=== PATIENT | male | born 1975 | race Asian ===

== ENCOUNTER 2025-01-11 08:34 | Outpatient (NON) | payer OTHER, SELFPAY ==
--- NOTE | 2025-01-11 | S_PTH ---
PATIENT: Chacho Lagunas LOC: [facility] U#:[id number] AGE/SX: 49/M ROOM: RE01/11/[address]: Nelson Wadsworth MD : 1975 BED: DIS: 01/11/2025 SPEC #: [id number] RECD: 01/12/25 09:25 STATUS: ZENA REQ #: [id number] GAB: 01/11/25 00:[address]: Nelson Wadsworth DEPT: [facility] Surgical RECD BY: Daniel Canela ENTERED: 01/12/25 09:25 SP TYPE: Surgical OTHR DR: Trey Raymundo, Tissues: A - Rectal Polyp Procedures: Hematoxylin and Eosin Stain Gross and Microscopic Level 4
== END 2025-01-11 08:35 | disposition home or self-care (01) ==
LOC: ANHLAB 01-12 08:36
PROVIDERS: PCP Internal Medicine; Visit Provider Internal Medicine Gastroenterology
DX: Z12.11 Encounter for screening for malignant neoplasm of colon (principal)
CPT/HCPCS: 88305

== ENCOUNTER 2025-01-11 10:18 | Day surgery (SDC) | payer OTHER, SELFPAY ==
[2024-11-26 13:46] VITALS: BMI 38.0
--- NOTE | 2024-12-23 14:23 | PC.NURSE ---
PRE-OPERATIVE INSTRUCTIONS [address] [address] 1. Report to the Surgery Center Waiting Room, the entrance is the first door on the right after passing through the automatic sliding doors, at time __1115__on [id number]___. OR Time:_1245__ . - Time changes happen often and if your time is changed the preop area will call you the afternoon before. - You and your visitor will be asked to self-screen and do not enter if you have any COVID symptoms. - Two visitors over, age 16 and older, are allowed.? NO children visitors are allowed at this time. - A mask is optional within the hospital at this time. 2. FOLLOW PREP INSTRUCTION 3. Take the following medications with a SIP of water the morning of surgery: 1. N/A____ 2. 3. Medications to discontinue per physician order: 1. N/A date to discontinue: 4. No make-up, nail [place], hairspray, perfume, deodorant, or body powder the day of surgery. No jewelry (including any body piercings) or valuables the day of surgery. Please take a shower or bath the night before, or the morning of, surgery with an antibacterial soap. Wear comfortable, loose fitting clothing. Children are encouraged to wear pajamas. - Jewelry must be removed prior to entering the operating room. Rings and piercings that are not removed will be cut off. The center will not accept responsibility for valuables. Please leave all valuables, including medications, at home the day of surgery. 5. When going home after surgery, a licensed package delivery driver must drive you home. NO public transportation without another adult. We recommend someone to stay with you, no alcoholic beverages, driving or important decision making for 24 hours after surgery. For pediatric surgeries, we recommend two adults to accompany a child home. 6. Follow any additional instructions given by your physician. Telephone instructions given to: PATIENT and asked if any additional questions and then verbalized understanding. Patient advised to call surgeon office or the surgery center at [phone] if any additional questions.
[2025-01-11 11:01] VITALS: BMI 37.5
[2025-01-11 11:14] VITALS: BP 116/84; PULSE 67; RESP 18; TEMP 36.9; O2SAT 98
[2025-01-11] MEDS: LACTATED RINGERS 1,000 ML 150 ML IV CONT (11:16)
--- NOTE | 2025-01-11 11:31 | P.PNAN_ITS ---
Anes - Initial Pre Proc Eval Procedure: Operation Date: 01/11/25 12:45 Proposed Procedures p Screening Colonoscopy - Nelson Wadsworth MD Date/Time: 01/11/25 11:31 Surgeon: Nelson Wadsworth MD Pre Op Diagnosis: Neoplasm Screening Patient Data Age: 49 Gender: M Height: 1.65 m Weight: 102.4 kg Last Vital Signs Temp 98.5 F 01/11/25 11:14 Pulse 67 01/11/25 11:14 Resp 18 01/11/25 11:14 BP 116/84 01/11/25 11:14 Pulse Ox 98 01/11/25 11:14 O2 Del Method Room Air 01/11/25 11:14 Allergies Allergy/AdvReac Type Severity Reaction Status Date / Time aspirin Allergy Intermediate Hives Verified 01/11/25 10:58 Home Medications ?Medication ?Instructions ?Recorded ?Confirmed ?Type albuterol sulfate 90 mcg/actuation 2 inh inhalation Q4 -6H #18 grams 11/25/24 12/23/24 Rx aerosol inhaler (ProAir HFA) simvastatin 40 mg tablet 40 mg PO DAILY #90 tabs 12/0401/11/25 Rx Patient hx anesthesia problems: none Family hx anesthesia problems: none Results Review: All pre-operative results and documents have been reviewed as part of the pre- operative evaluation. [facility], LAT[facility] Family History Family History Father No problems noted. Mother No problems noted. Sibling No problems noted. Sibling No problems noted. Social History Social History (Updated 11/25/24 @ 12:58 by Nilda Arnold) Smoking status: Never smoker Alcohol intake: current Drinks per week: 1 Alcohol use details: occasional Substance use: never Substance use type: does not use Do You Feel Safe in your Home?: Yes Lack of Transportation: No Lack of Food: Never True Current Housing: I Have Housing Concerned About Future Housing: No Difficulty Paying Gas/Electric Bills: No Difficulty Paying for Meds: No Currently Unemployed: No Education: Decline to Answer Difficulty w/ Childcare or Family Care: No Living arrangements: with family Occupation/Education: occupation Gender identity (if verbalized by the patient): Male Sexual Orientation (if Verbalized by the Patient): Straight or Heterosexual Spiritual care concerns: No Anes - Eval Final PreProcedure Day of Procedure 01/11/25 11:31 Heart: regular rate and rhythm Lungs: clear to auscultation Airway: Mallampati scale class III Neurological: alert and oriented Last oral intake: >/= 8 hours ASA classification: II Anesthetic plan: proceed Anesthesia type and monitoring: monitored anesthesia care Results Review: All pre-operative results and documents have been reviewed as part of the pre- operative evaluation. Informed Consent: The patient's anesthetic plan and its attendant risks and benefits were discussed with the patient/family/POA. Questions were solicited and answers provided to the satisfaction of the patient/family/POA.
--- NOTE | 2025-01-11 11:48 | PM.IMHP ---
H&P: HPI History of Present Illness Date/Time: 01/11/25 11:48 Chief Complaint: Screening colonoscopy Narrative: This is the patient's first colonoscopy. There are no GI symptoms and there is no family history of colorectal cancer. Review of Systems Review of Systems: All systems reviewed & are unremarkable except as noted in HPI and below PMFSH Family History Family History Father No problems noted. Mother No problems noted. Sibling No problems noted. Sibling No problems noted. Social History Social History (Updated 11/25/24 @ 12:58 by Nilda Arnold) Smoking status: Never smoker Alcohol intake: current Drinks per week: 1 Alcohol use details: occasional Substance use: never Substance use type: does not use Do You Feel Safe in your Home?: Yes Lack of Transportation: No Lack of Food: Never True Current Housing: I Have Housing Concerned About Future Housing: No Difficulty Paying Gas/Electric Bills: No Difficulty Paying for Meds: No Currently Unemployed: No Education: Decline to Answer Difficulty w/ Childcare or Family Care: No Living arrangements: with family Occupation/Education: occupation Gender identity (if verbalized by the patient): Male Sexual Orientation (if Verbalized by the Patient): Straight or Heterosexual Spiritual care concerns: No Meds Home Medications and Allergies Home Medications ?Medication ?Instructions ?Recorded ?Confirmed ?Type albuterol sulfate 90 mcg/actuation 2 inh inhalation Q4-6H #18 grams 11/25/24 12/23/24 Rx aerosol inhaler (ProAir HFA) simvastatin 40 mg tablet 40 mg PO DAILY #90 tabs 12/14/24 01/11/25 Rx Allergies Allergy/AdvReac Type Severity Reaction Status Date / Time aspirin Allergy Intermediate Hives Verified 01/11/25 10:58 Vital Signs Vital Signs - 24 hr 01/11/25 11:14 Temperature 98.5 F Pulse Rate 67 Respiratory Rate 18 Blood Pressure 116/84 Pulse Oximetry 98 Oxygen Delivery Room Air Exam Const: General: cooperative and healthy appearing Resp: Effort & Inspection: normal respiratory effort and able to speak in complete sentences Auscultation: clear to auscultation bilaterally Cardio: Rate: regular rate Rhythm: regular rhythm GI: Inspection: normal to inspection GI Palp: No No hepatosplenomegaly present Auscultation: normal bowel sounds Rectal Exam: deferred Skin: General skin exam: normal color Psych: Appearance: grossly normal Mental Status: mental status grossly normal Assessment and Plan Assessment and plan (1) Encounter for screening colonoscopy: Code(s): Z12.11 - Encounter for screening for malignant neoplasm of colon Status: Acute Assessment and Plan: The patient is deemed a good candidate for the procedure. Consent signed. Will proceed.
--- NOTE | 2025-01-11 11:59 | WPDANESPN ---
Anes - Prog Note Post-Op Date/Time: 01/11/25 11:59 Vital Signs: Last Vital Signs Temp 98.5 F 01/11/25 11:14 Pulse 67 01/11/25 11:14 Resp 18 01/11/25 11:14 BP 116/84 01/11/25 11:14 Pulse Ox 98 01/11/25 11:14 O2 Del Method Room Air 01/11/25 11:14 Pain Score (VAS): no Patient Feedback: Patient satisfied with anesthetic care.
[2025-01-11] MEDS: SIMETHICONE ORAL SUSPENSION 20 MG/0.3 ML 30 ML BOTTLE 0.6 ML IRRIGATION (12:09)
[2025-01-11 12:22] VITALS: BP 90/64; PULSE 68; RESP 14; O2SAT 96
[2025-01-11 12:32] VITALS: BP 99/74; PULSE 64; RESP 16; O2SAT 98
[2025-01-11 12:42] VITALS: BP 130/89; PULSE 62; RESP 16; O2SAT 98
== END 2025-01-11 12:58 | disposition home or self-care (01) ==
PROVIDERS: PCP Internal Medicine; Visit Provider Internal Medicine Gastroenterology
PROC: 0DJD8ZZ Inspection of Lower Intestinal Tract, Via Natural or Artificial Opening Endoscopic (ICD-10-PCS; CPT 45378; principal; 2025-01-11 12:45)
DX: Z12.11 Encounter for screening for malignant neoplasm of colon (principal); K63.5 Polyp of colon
CPT/HCPCS: 45385